=== PATIENT | male | born 1970 | race Caucasian/White ===

== ENCOUNTER 2019-06-12 18:24 | Emergency (ER) | payer OTHER ==
[~2019-06-12] VITALS: Ht 175.3 cm; Wt 127.0 kg
[2019-06-12] MEDS ORDERED: IBUPROFEN 600MG TABLET PO ONE (19:00)
[2019-06-12 19:08] VITALS: BP 165/95
== END 2019-06-12 21:00 | disposition home or self-care (01) ==
LOC: ER 18:24
DX: M54.5 Low back pain (principal); Z91.041 Radiographic dye allergy status; Z88.0 Allergy status to penicillin
CPT/HCPCS: 72100; 99283

== ENCOUNTER 2019-08-08 17:24 | Emergency (ER) | payer MEDICAID, OTHER ==
[~2019-08-08] VITALS: Ht 172.7 cm; Wt 120.0 kg
[2019-08-08] MEDS ORDERED: KETOROLAC 60MG/2ML VIAL IM ONE (19:15)
[2019-08-08 21:19] VITALS: BP 132/70
== END 2019-08-08 21:21 | disposition home or self-care (01) ==
LOC: ER 17:24
DX: S83.8X2A Sprain of other specified parts of left knee, initial encounter (principal); X58.XXXA Exposure to other specified factors, initial encounter; Y93.89 Activity, other specified; Y92.89 Other specified places as the place of occurrence of the external cause; E11.9 Type 2 diabetes mellitus without complications; R03.0 Elevated blood-pressure reading, without diagnosis of hypertension
CPT/HCPCS: 73562; 96372; 99283; J1885